=== PATIENT | female | born 1935 | race Caucasian/White ===

== ENCOUNTER 2020-01-06 19:40 | Emergency (ER) | payer MEDICARE, OTHER, SELFPAY ==
[2020-01-06 19:41] VITALS: BP 148/60; PULSE 70; RESP 16; TEMP 37.1; O2SAT 96; BMI 29.0
[2020-01-06 19:45] VITALS: O2SAT 98
--- NOTE | 2020-01-06 20:29 | RAD_ITS ---
STUDY: X-RAY - LEFT SHOULDER REASON FOR EXAM: Female, 84 years old. PATIENT TRIPPED OVER RUG AND FELL. COMPLAINING OF LEFT SHOULDER PAIN. PATIENT ALSO COMPLAINS OF DIZZINESS, NAUSEA, AND LIGHTHEADEDNESS. TECHNIQUE: 2 view(s) of the shoulder. COMPARISON: None. 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 Normal acromioclavicular joint. Normal acromion. There is a comminuted slightly displaced fracture of the humeral greater tuberosity as well as a displaced humeral neck fracture. The soft tissue structures are unremarkable. Normal visualized pulmonary apex. RAD/Shoulder min 2 Views IMPRESSION: Displaced humeral neck fracture as well as a comminuted slightly displaced fracture of the humeral greater tuberosity. Electronically Signed: Kaushal Porras MD at 21:44 EDT , Service support ,
--- NOTE | 2020-01-06 20:30 | RAD_ITS ---
STUDY: X-RAY - LEFT WRIST REASON FOR EXAM: Female, 84 years old. PATIENT TRIPPED OVER RUG AND FELL. COMPLAINING OF LEFT SHOULDER PAIN. PATIENT ALSO COMPLAINS OF DIZZINESS, NAUSEA, AND LIGHTHEADEDNESS. TECHNIQUE: 3 view(s) of the wrist were obtained. COMPARISON: None. FINDINGS: There is demineralization of the radius and ulna. There is degenerative arthrosis of the radiocarpal articulation. Normal distal radioulnar articulation. Normal carpal bones. There are degenerative changes of the greater multangular navicular joint. There are degenerative changes of the first metacarpal greater multangular joint. Normal second through fifth carpometacarpal articulations. Normal visualized metacarpal bones. The soft tissue structures are unremarkable. RAD/Wrist min 3 Views IMPRESSION: Generalized osteopenia. Degenerative changes as detailed above. No evidence of fracture or dislocation. Electronically Signed: Kaushal Porras MD at 21:43 EDT , Service support ,
--- NOTE | 2020-01-06 20:30 | ED.DCSUM_ITS ---
- ER Visit Summary Date of Service: 01/06/20 Chief Complaint: Fall History of Present Illness: The patient is a 84 F who presents after a fall that occurred today. Patient states she tripped over a rug and fell onto her left side. Patient states the pain is worse over her left shoulder and left wrist. Patient states the pain is dull. Patient states pain is worse with any movement. Patient denies any paresthesias or weakness. Patient denies any head injury or loss of consciousness. Patient denies any chest pain or shortness of breath. Patient admits to nausea but denies any vomiting. Physical Examination: Vital signs are stable. Patient is afebrile. Patient is in no acute distress. Oral mucosa is pink and moist. Neck is supple. Trachea is midline. There is no JVD. Heart was regular rate and rhythm. Lungs are clear and equal bilaterally. There is no chest wall tenderness. Abdomen is soft. Bowel sounds are normal. There is no tenderness. Cranial nerves II through XII are intact. There are no focal motor or sensory deficits noted. Extremities are intact. There is tenderness over the left shoulder. There is mild tenderness over the left elbow and left wrist as well. There is no obvious deformity. Range of motion was limited in all motions of the left wrist, left elbow, and left shoulder secondary to pain. Radial pulses are equal bilaterally. Test Results: Trays of the right shoulder were obtained. There is a displaced fracture of the humeral neck as well as a slightly displaced fracture of the greater tuberosity of the right proximal humerus. X-rays of the right elbow did not show any fracture. X-rays of the right wrist did not show any acute fracture. These were interpreted by myself and the radiologist. Emergency Department Course and Treatment: Patient was given a dose of morphine here. Ice packs were applied to the left wrist and left shoulder. Patient was given a repeat dose of morphine. Patient was placed in a sling and swath. Patient was instructed to use ice to the area. Patient was given a prescription for Percocet. Patient was instructed to follow-up with her primary care physician and orthopedist in 5 to 7 days. Patient understood and was agreeable with the plan. All questions were answered. Disposition: Discharge home Impression: 1. Acute fracture left proximal humerus 2. Acute sprain left wrist This note was generated with [employer] software. It may contain incorrect words, spelling, and punctuation that were not noted in review of the chart prior to signing ED Disposition - Plan for ED Patient: Disposition: Home or Assisted Living Diagnosis: Fracture of proximal end of left humerus, Left wrist sprain Instructions: ED Fracture Upper Extremity, ED Sprain Wrist Prescriptions: Oxycodone HCl/Acetaminophen [Percocet 5/325] 1 tab PO Q6H PRN PRN 3 Days #12 tab PRN Reason: Pain Prescription Printed Referrals: [facility],Out of [NON-STAFF] - 5-7 Days
[2020-01-06] MEDS: Morphine 4 MG/ML Syringe IV ×2 (20:35→21:57)
--- NOTE | 2020-01-06 20:50 | RAD_ITS ---
STUDY: X-RAY - LEFT ELBOW REASON FOR EXAM: Female, 84 years old. PATIENT TRIPPED OVER RUG AND FELL. COMPLAINING OF LEFT SHOULDER PAIN. PATIENT ALSO COMPLAINS OF DIZZINESS, NAUSEA, AND LIGHTHEADEDNESS. PT UNABLE TO ROTATE WRIST FOR LATERAL PROJECTION OF ELBOW TECHNIQUE: 3 view(s) of the elbow. COMPARISON: None. FINDINGS: Normal visualized humerus, radius and ulna. Normal radiocapitellar and ulnotrochlear articulations. The soft tissue structures are unremarkable. RAD/Elbow min 3 Views IMPRESSION: Normal x-ray examination of the elbow. Electronically Signed: Kaushal Porras MD at 21:46 EDT , Service support ,
[2020-01-06 23:19] VITALS: BP 146/76; PULSE 86; RESP 16; O2SAT 98
[2020-01-09 07:20] LABS: Bedside Glucose 151 mg/dL (70-110)
== END 2020-01-06 23:20 | disposition home or self-care (01) ==
PROVIDERS: Emergency Provider Emergency Medicine
DX: S42.202A Unspecified fracture of upper end of left humerus, initial encounter for closed fracture (principal); S63.502A Unspecified sprain of left wrist, initial encounter; W19.XXXA Unspecified fall, initial encounter
CPT/HCPCS: 73030; 73080; 73110; 82962; 96374; 96376; 99285; A4216